=== PATIENT | male | born 1985 | race Caucasian/White ===

== ENCOUNTER 2018-04-29 13:46 | Emergency (ER) ==
[2018-04-29 13:51] VITALS: BP 154/99; TEMP 98.4; BMI 43.4
--- NOTE | 2018-04-29 15:06 | CT ---
EXAM: CT abdomen pelvis without contrast HISTORY: Flank pain, hematuria COMPARISON: None TECHNIQUE: CT abdomen pelvis performed without intravenous contrast. Coronal and sagittal reformatt ed images obtained. FINDINGS: Lung bases clear. No free air. No acute abnormalities of the bones. Mild degenerative c hange in the spine. Heart normal in size. Evaluation organ parenchyma limited without contrast. Li felix diffusely decreased in attenuation. Gallbladder appears normal. Pancreas appears normal. Splee n top normal in size. Adrenals appear normal. Aorta normal in caliber. Prostate normal in size. S mall fat-containing left inguinal hernia. Small fat-containing periumbilical hernia. No lymphadenop athy or ascites. Stomach appears normal. No dilated loops small bowel. Appendix appears normal. C olon unremarkable. No nephrolithiasis. Mild right hydroureternephrosis and associated perinephric/p eriureteral stranding secondary to a 3 mm obstructing calculus at the right ureterovesicular junction . No left hydronephrosis. No calculi visualized in normal course of the left ureter. Bladder decom pressed and poorly evaluated. IMPRESSION: 1. Mild right hydroureternephrosis and associated perinephric/periureteral stranding secondary to a 3 mm obstructing calculus at the right ureterovesicular junction. 2. Hepatic steatosis.
--- NOTE | 2018-04-29 15:34 | ED.PDOC ---
General ED Provider: Dr. ANTONETTE GRANGER-ER Chief Complaint: Back Pain Stated Complaint: i think i have a kidney stone Time Seen by Physician: 13:50 Mode of Arrival: Walk-In Information Source: Patient, Family Exam Limitations: No limitations Primary Care Provider: CONSTANTINO GRAY Nursing and Triage Documentation Reviewed and Agree: Yes Does patient meet sepsis criteria?: No System Inflammatory Response Syndrome: Not Applicable Sepsis Protocol: For patient's 13 years and over: Temp is 96.8 and below OR 101 and greater Pulse >90 BPM Resp >20/minute Acutely Altered Mental Status Are patient's symptoms suggestive of a new infection, such as: -Pneumonia -Skin, Soft Tissue -Endocarditis -UTI -Bone, Joint Infection -Implantable Device -Acute Abdominal Infection -Wound Infection -Meningitis -Blood Stream Catheter Infection -Unknown GI Complaint Exam - Abdominal Pain Complaint/Exam Onset: Gradual Duration: several days Symptoms Are: Still present Timing: Constant Initial Severity: Severe Current Severity: Moderate Location of Pain: Discrete, RUQ Radiates To: Reports: Back, Flank Character: Reports: Dull, Aching Aggravating: Reports: None Associated Signs and Symptoms: Denies: Diaphoresis, Fever, Cough, Chest pain, Dizziness, Back pain, Constipation, Blood in stool, Dysuria, Urinary frequency, Decreased urine output, Decreased appetite, Discharge, Nausea, Vomiting, Diarrhea, Decreased activity Differential Diagnoses: Renal Colic, Ureteral Stone Review of Systems - Review Of Systems Constitutional: Reports: No symptoms Eyes: Reports: No symptoms Ears, Nose, Mouth, Throat: Reports: No symptoms Respiratory: Reports: No symptoms Cardiac: Reports: No symptoms GI: Reports: Abdominal pain : Reports: Flank pain, Pain, Urgency Musculoskeletal: Reports: No symptoms Skin: Reports: No symptoms Neurological: Reports: No symptoms Endocrine: Reports: No symptoms Hematologic/Lymphatic: Reports: No symptoms All Other Systems: Reviewed and Negative Past Medical History - Past Medical History Previously Healthy: No Endocrine: Reports: Unknown Cardiovascular: Reports: Unknown Respiratory: Reports: Unknown Hematological: Reports: Unknown Gastrointestinal: Reports: Unknown Genitourinary: Reports: Unknown Neuro/Psych: Reports: Unknown Musculoskeletal: Reports: Unknown Cancer: Reports: Unknown - Surgical History General Surgical History: Reports: Unknown - Family History Family History: Reports: Unknown - Social History Smoking Status: Current every day smoker, Heavy tobacco smoker Hx Substance Use: No Alcohol Screening: Occasionally Physical Exam - Physical Exam Appearance: Well-appearing, No pain distress, Well-nourished Pain Distress: Moderate Eyes: MAYELIN, EOMI, Conjunctiva clear ENT: Ears normal, Nose normal, Oropharynx normal Neck: Supple Respiratory: Airway patent, Breath sounds clear, Breath sounds equal, Respirations nonlabored Cardiovascular: RRR, Pulses normal, No rub, No murmur GI/: Soft Musculoskeletal: Normal strength, ROM intact, No edema, No calf tenderness Skin: Warm, Dry, Normal color Neurological: Sensation intact, Motor intact, Reflexes intact, Cranial nerves intact, Alert, Oriented Psychiatric: Affect appropriate, Mood appropriate Interpretation - Radiology Interpretation Radiology Interpretation By: Radiologist Radiology Results: Positive Exam Interpreted: CT Scan Critical Care Note - Critical Care Note Total Time (mins): 0 Course - Course Hematology/Chemistry: 04/29/18 13:47 04/29/18 13:47 Orders, Labs, Meds: Lab Review 04/29/18 04/29/18 04/29/18 13:47 13:47 14:05 WBC 14.91 H RBC 5.04 Hgb 16.1 Hct 46.1 MCV 91.5 MCH 31.9 H MCHC 34.9 RDW Coeff of Magaly 12.1 Plt Count 165 Immature Gran % (Auto) 0.4 Neut % (Auto) 74.3 Lymph % (Auto) 13.6 Hale % (Auto) 8.9 Eos % (Auto) 2.1 Baso % (Auto) 0.7 Immature Gran # (Auto) 0.1 Neut # (Auto) 11.1 H Lymph # (Auto) 2.0 Hale # (Auto) 1.3 Eos # (Auto) 0.3 Baso # (Auto) 0.1 Sodium 138 Potassium 4.1 Chloride 104 Carbon Dioxide 25 Anion Gap 13.1 BUN 13 Creatinine 1.58 H Estimated GFR (MDRD) 51.00 BUN/Creatinine Ratio 8.22 Glucose 101 Calcium 9.5 Total Bilirubin 1.6 H AST 33 ALT 47 Alkaline Phosphatase 70 Total Protein 7.7 Albumin 4.3 Globulin 3.4 Albumin/Globulin Ratio 1.26 Urine Color Yellow Urine Clarity Clear Urine pH 5.5 Ur Specific [place] 1.025 Urine Protein Negative Urine Glucose (UA) Negative Urine Ketones Negative Urine Blood Negative Urine Nitrite Negative Urine Bilirubin Negative Urine Urobilinogen 0.2 Ur Leukocyte Esterase Negative Orders Category Date Time Status CBC W/ AUTO DIFF Stat LAB 04/29/18 13:47 Completed COMPREHENSIVE METABOLIC PANEL Stat LAB 04/29/18 13:47 Completed UA [URINALYSIS C & S IF INDICATED] Stat LAB 04/29/18 14:[address] ABD/PEL WO RENAL STONE PROT Stat RADS 04/29/18 13:55 Completed Vital Signs: Temp Pulse Resp BP Pulse Ox 04/29/18 13:47 98.4 F 108 H 20 154/99 H 95 Departure - Departure Time of Disposition: 15:34 Disposition: HOME SELF-CARE Discharge Problem: Ureteral stone Instructions: Kidney Stones (ED) Condition: Good Pt referred to PMD for follow-up: Yes IPMP verified?: No Additional Instructions: norco 7.5mg q 4hrs prn pain #12---fluids--flomax 0.4mg daily #3---strain all urine--consider referral to see urology if stone not passed Allergies/Adverse Reactions: Allergies No Known Allergies Allergy (Unverified 04/29/18 13:53) Home Medications: Ambulatory Orders Cetirizine HCl [Zyrtec] 10 mg PO DIRECTED PRN 04/29/18 Disposition Discussed With: Patient, Family
== END 2018-04-29 15:52 | disposition home or self-care (01) ==
LOC: ED 13:46
DX: N20.1 Calculus of ureter (principal); F17.210 Nicotine dependence, cigarettes, uncomplicated
CPT/HCPCS: 36415; 74176; 80053; 81001; 85025; 99283